=== PATIENT | female | born 1990 | race Caucasian/White ===

== ENCOUNTER 2016-09-13 14:10 | Emergency (ER) | payer MEDICAID, OTHER ==
[~2016-09-13] VITALS: Ht 149.9 cm; Wt 106.6 kg
[2016-09-13 14:10] VITALS: BP 141/89
== END 2016-09-13 15:01 | disposition home or self-care (01) ==
LOC: ER 14:12
DX: J20.9 Acute bronchitis, unspecified (principal)
CPT/HCPCS: 99283; A4606; Z7610

== ENCOUNTER 2021-10-09 17:19 | Emergency (ER) | payer BC ==
[~2021-10-09] VITALS: Ht 149.9 cm; Wt 104.3 kg
[2021-10-09 17:27] VITALS: BP 117/74
--- NOTE | 2021-10-09 17:35 | NUR ---
Bibs for c/o itchy throat and cough x 1 week. Oxygen saturation in room air is at 98%. Respiration regular and unlabored. Will continue to monitor the patient.
[2021-10-09] MEDS ORDERED: IBUPROFEN 600 MG TABLET ONE (17:49)
--- NOTE | 2021-10-09 17:57 | NUR ---
COVID ANTIGEN SWAB AND STREP SWAB DONE AND SENT
[2021-10-09] MEDS ORDERED: IBUPROFEN 600 MG TABLET PO ONE (18:00)
[2021-10-09] MEDS ORDERED: LIDOCAINE VISCOUS 2% UD 15 ML UDC MM ONE (18:30)
[2021-10-09] MEDS ORDERED: LIDOCAINE VISCOUS 2% UD 15 ML UDC ONE (18:48)
--- NOTE | 2021-10-09 18:52 | NUR ---
PER SILVIA OF LAB, COVID RESULT WILL BE OUT IN 6MINS
[2021-10-09] MEDS ORDERED: PRED20TA PO (19:36)
[2021-10-09] MEDS ORDERED: IBUP-1955 PO (19:36)
[2021-10-09] MEDS ORDERED: BENZ1LOZ58 PO (19:36)
== END 2021-10-09 19:49 | disposition home or self-care (01) ==
LOC: ER 17:21
DX: J02.8 Acute pharyngitis due to other specified organisms (principal); Z20.822 Contact with and (suspected) exposure to COVID-19
CPT/HCPCS: 70360; 87426; 87880; 99284; C9803; 86403-TC; 87070-TC